=== PATIENT | male | born 1930 | race Caucasian/White ===

== ENCOUNTER 2019-03-09 13:27 | Inpatient (IN) | payer MEDICARE, OTHER ==
[2019-03-09] MEDS: Glimepiride 2 MG Tab PO SCH (17:17)
[2019-03-09] MEDS: Furosemide 40 MG Tab PO SCH (17:17)
[2019-03-09] MEDS: Insulin Lispro 100 Unit/ML 3 ML KwikPen SUBCUT SCH (17:17)
[2019-03-09] MEDS: Cholecalciferol (Vitamin D3) 25 MCG Tab PO SCH (19:59)
[2019-03-09] MEDS: Latanoprost 0.005% Ophth Soln 2.5 ML Bottle EYEBOTH SCH (20:06)
[2019-03-10] MEDS ORDERED: Warfarin 2 MG Tab PO ONE
[2019-03-10] MEDS: Warfarin 2 MG Tab PO SCH (00:15)
[2019-03-10] MEDS: Omeprazole 20 MG Cap.CR PO SCH (06:31)
[2019-03-10] MEDS: Amiodarone 200 MG Tab PO SCH (07:25)
[2019-03-10] MEDS: atorvaSTATin 40 MG Tab PO SCH (07:25)
[2019-03-10] MEDS: Lisinopril 20 MG Tab PO SCH (07:25)
[2019-03-10] MEDS: Tamsulosin 0.4 MG Cap.ER PO SCH (07:27)
[2019-03-10] MEDS: Finasteride 5 MG Tab PO SCH (07:27)
[2019-03-10] MEDS: Furosemide 40 MG Tab PO SCH ×2 (07:27→15:42)
[2019-03-10] MEDS: Cholecalciferol (Vitamin D3) 25 MCG Tab PO SCH ×2 (07:27→20:38)
[2019-03-10] MEDS: Multivitamin, Stress Formula with Zinc Tab PO SCH (07:27)
[2019-03-10] MEDS: Glimepiride 2 MG Tab PO SCH ×2 (07:28→18:02)
[2019-03-10] MEDS: Aspirin 81 MG Tab.EC PO SCH (07:28)
[2019-03-10] MEDS: Fish Oil/Omega-3 Fatty Acids 1 Gm Cap PO SCH (07:29)
[2019-03-10] MEDS: Glucosamine 500 MG Cap PO SCH (07:29)
[2019-03-10] MEDS: Insulin Lispro 100 Unit/ML 3 ML KwikPen SUBCUT SCH (07:30)
[2019-03-10] MEDS ORDERED: Metoprolol Succinate 50 MG Tab.ER PO SCH (08:00)
[2019-03-10] MEDS ORDERED: Menthol/Zinc Oxide Ointment 3.5 GM Tube TOP PRN (10:15)
[2019-03-10] MEDS: Acetaminophen 325 MG Tab PO PRN (15:42)
[2019-03-10] MEDS ORDERED: Non-Formulary Medication 1 Each (Warfarin 3 MG) PO SCH (20:00)
[2019-03-10] MEDS: Warfarin 2 MG, Warfarin 1 MG PO SCH ×2 (20:37)
[2019-03-10] MEDS: Latanoprost 0.005% Ophth Soln 2.5 ML Bottle EYEBOTH SCH (20:38)
[2019-03-11] MEDS: Omeprazole 20 MG Cap.CR PO SCH (06:15)
[2019-03-11] MEDS: TRULICITY SUBCUT SCH ×2 (07:33→12:00)
[2019-03-11] MEDS: Multivitamin, Stress Formula with Zinc Tab PO SCH (07:33)
[2019-03-11] MEDS: Furosemide 40 MG Tab PO SCH ×2 (07:34→16:07)
[2019-03-11] MEDS: Cholecalciferol (Vitamin D3) 25 MCG Tab PO SCH ×2 (07:34→19:33)
[2019-03-11] MEDS: atorvaSTATin 40 MG Tab PO SCH (07:34)
[2019-03-11] MEDS: Acetaminophen 325 MG Tab PO PRN ×2 (07:34→16:10)
[2019-03-11] MEDS: Finasteride 5 MG Tab PO SCH (07:34)
[2019-03-11] MEDS: Glucosamine 500 MG Cap PO SCH (07:34)
[2019-03-11] MEDS: Glimepiride 2 MG Tab PO SCH ×2 (07:35→17:45)
[2019-03-11] MEDS: Aspirin 81 MG Tab.EC PO SCH (07:35)
[2019-03-11] MEDS: Amiodarone 200 MG Tab PO SCH (07:35)
[2019-03-11] MEDS: Tamsulosin 0.4 MG Cap.ER PO SCH (07:35)
[2019-03-11] MEDS: Lisinopril 20 MG Tab PO SCH (07:36)
[2019-03-11] MEDS: Fish Oil/Omega-3 Fatty Acids 1 Gm Cap PO SCH (07:37)
[2019-03-11] MEDS: [UNRECOGNIZED DRUG - OTHER] PO SCH (07:38)
[2019-03-11] MEDS: BISOPROLOL 5 MG PO SCH (07:38)
[2019-03-11] MEDS: Warfarin 2 MG, Warfarin 1 MG PO SCH ×2 (19:33)
[2019-03-11] MEDS: Latanoprost 0.005% Ophth Soln 2.5 ML Bottle EYEBOTH SCH (21:50)
--- NOTE | 2019-03-11 23:55 | PCM.HP ---
H&P History of Present Illness - General Date of Service: 03/10/19 Admit Problem/Dx: Admission Diagnosis/Problem Admission Diagnosis/Problem CHF, Congestive heart failure weakness - secondary to recent acute exacerbation of diastolic CHF Source of Information: Patient, Old Records - History of Present Illness Initial Comments - Free Text/Narative: 88 year old male admitted to swing bed for continued therapy following recent hospitalization at [facility]. Pt was treated for acute exacerbation of diastolic CHF. He states he is feeing better than he had. Still has some SOB. Notes he wasn't wearing oxygen at home prior to hospitalization. Bilateral Knees Pain Score (Numeric/FACES): 5 - Related Data Allergies/Adverse Reactions: Allergies Allergy/AdvReac Type Severity Reaction Status Date / Time No Known Allergies Allergy Verified 03/09/19 13:41 Home Medications: Home Meds Amiodarone [Cordarone] 200 mg PO DAILY 03/09/19 [History] Aspirin [Halfprin] 81 mg PO DAILY 03/09/19 [History] Bisoprolol [Zebeta] 2.5 mg PO DAILY 03/09/19 [History] Cholecalciferol (Vitamin D3) [Vitamin D3] 1,000 units PO BID 03/09/19 [History] Dulaglutide [Trulicity] 1.5 mg SQ WEEKLY 03/09/19 [History] Febuxostat [Uloric] 80 mg PO DAILY 03/09/19 [History] Finasteride [Proscar] 5 mg PO DAILY 03/09/19 [History] Furosemide [Lasix] 40 mg PO BID 03/09/19 [History] Glimepiride [Amaryl] 1 mg PO BID 03/09/19 [History] Glucosamine Sulfate 500 mg PO DAILY 03/09/19 [History] Latanoprost/Pf [Latanoprost 0.005% Eye Drop] 1 drop EYEBOTH BEDTIME 03/09/19 [ History] Lisinopril 10 mg PO DAILY 03/09/19 [History] Multivitamin [Daily Marlin] 1 tab PO DAILY 03/09/19 [History] Hancock-3 Fatty Acids [Maxepa] 1,000 mg PO DAILY 03/09/19 [History] Omeprazole 20 mg PO ACBREAKFAST 03/09/19 [History] Tamsulosin [Flomax] 0.4 mg PO DAILY 03/09/19 [History] Warfarin [Coumadin] 2 mg PO MOWEFR@199903/09/19 [History] Warfarin [Coumadin] 3 mg PO SUTUTHSA@199903/09/19 [History] atorvaSTATin Calcium [Lipitor] 40 mg PO DAILY 03/09/19 [History] Past Medical History HEENT History: Reports: Cataract, Glaucoma, Hard of Hearing Cardiovascular History: Reports: Afib (paroxysmal), Arrhythmia (History of paryoxysmal v tach), Heart Failure (Diastolic), High Cholesterol, Hypertension, Pacemaker, Pulmonary Hypertension, Other (See Below) Other Cardiovascular History: SSS Respiratory History: Reports: Sleep Apnea, SOB Gastrointestinal History: Reports: Diverticulosis, GERD, Hemorrhoids Genitourinary History: Reports: BPH, Diabetic Nephropathy, Prostate Disorder, Renal Disease, Retention, Urinary Musculoskeletal History: Reports: Gout Endocrine/Metabolic History: Reports: Diabetes Mellitus, Type 3c, Hyperparathyroidism, Obesity/BMI 30+, Other (See Below) Hematologic History: Reports: Anemia, Other (See Below) Oncologic (Cancer) History: Reports: Squamous Cell Carcinoma Dermatologic History: Reports: Other (See Below) Other Dermatologic History: Actinic Keratosis - Past Surgical History HEENT Surgical History: Reports: Cataract Surgery Cardiovascular Surgical History: Reports: Pacer, Varicose GI Surgical History: Reports: Colonoscopy, Polypectomy Oncologic Surgical History: Reports: Other (See Below) Other Oncologic Surgeries/Procedures: MOHS of dorsal Left hand Social & Family History - Family History Family Medical History: Noncontributory - Tobacco Use Smoking Status *Q: Never Smoker Second Hand Smoke Exposure: No - Caffeine Use Caffeine Use: Reports: Coffee Caffeine Use Comment: 2-3 cups/day - Recreational Drug Use Recreational Drug Use: No H&P Review of Systems - Review of Systems: Review Of Systems: See Below General: Reports: Weakness. Denies: Fever, Chills HEENT: Reports: No Symptoms Pulmonary: Reports: Shortness of Breath Cardiovascular: Reports: Dyspnea on Exertion, Edema. Denies: Chest Pain Gastrointestinal: Reports: No Symptoms Genitourinary: Reports: Incontinence Musculoskeletal: Reports: Joint Pain Skin: Reports: No Symptoms Psychiatric: Reports: No Symptoms Neurological: Reports: Gait Disturbance Exam - Exam Exam: See Below - Vital Signs Vital Signs: Last Vital Signs Temp 36.4 C 03/11/19 06:00 Pulse 69 03/11/19 06:00 Resp 20 03/11/19 06:00 BP 143/69 H 03/11/19 07:36 Pulse Ox 93 L 03/11/19 07:09 Weight: 131.995 kg - Exam Quality Assessment: Supplemental Oxygen General: Alert, Oriented HEENT: Conjunctiva Clear, EOMI Neck: Supple Lungs: Clear to Auscultation Cardiovascular: Regular Rate GI/Abdominal Exam: Normal Bowel Sounds, Soft Extremities: Pedal Edema - Patient Data Lab Results Last 24 hrs: Laboratory Results - last 24 hr 03/11/19 03/11/19 03/11/19 Range/Units 06:20 10:43 17:15 POC Glucose 115 H 128 H 153 H (74-106) mg/dL 03/11/19 Range/Units 19:39 POC Glucose 175 H (74-106) mg/dL - Problem List (1) Weakness SNOMED Code(s): 20591900 ICD Code: R53.1 - WEAKNESS Status: Acute Current Visit: Yes (2) Diastolic CHF, chronic SNOMED Code(s): 647720817, 633336301 ICD Code: I50.32 - CHRONIC DIASTOLIC (CONGESTIVE) HEART FAILURE Status: Acute Current Visit: Yes (3) Diabetes mellitus type II, controlled SNOMED Code(s): 19029597, 899130009 ICD Code: E11.9 - TYPE 2 DIABETES MELLITUS WITHOUT COMPLICATIONS Status: Acute Current Visit: Yes (4) Paroxysmal atrial fibrillation SNOMED Code(s): 573173588 ICD Code: I48.0 - PAROXYSMAL ATRIAL FIBRILLATION Status: Acute Current Visit: Yes (5) Hypertension SNOMED Code(s): 93091882 ICD Code: I10 - ESSENTIAL (PRIMARY) HYPERTENSION Status: Acute Current Visit: Yes (6) Hyperuricemia SNOMED Code(s): 88757666 ICD Code: E79.0 - HYPERURICEMIA W/O SIGNS OF INFLAM ARTHRIT AND TOPHACEOUS DIS Status: Acute Current Visit: Yes (7) Diabetic peripheral neuropathy associated with type 2 diabetes mellitus SNOMED Code(s): 8600297374548 ICD Code: E11.42 - TYPE 2 DIABETES MELLITUS WITH DIABETIC POLYNEUROPATHY Status: Acute Current Visit: Yes Problem List Initiated/Reviewed/Updated: Yes Orders Last 24hrs: Active Orders 24 hr Category Date Time Status INR,PT,PROTHROMBIN TIME [COAG] WEEKLY Lab 03/17/19 05:11 Ordered INR,PT,PROTHROMBIN TIME [COAG] WEEKLY Lab 03/24/19 05:11 Ordered INR,PT,PROTHROMBIN TIME [COAG] WEEKLY Lab 03/31/19 05:11 Ordered Patient's Own Medication [Ptom] Med 03/11/19 08:00 Active 0 each PO DAILY Patient's Own Medication [Ptom] Med 03/11/19 08:00 Active 0 each SUBCUT Q7D Warfarin [Coumadin] Med 03/12/19 20:00 Active 2 mg PO MOWEFR@2000 Medication Orders Acetaminophen (Tylenol) 325 - 650 mg PO Q4H PRN PRN Reason: Pain Last Admin: 03/11/19 16:10 Dose: 650 mg Admin: 03/11/19 07:34 Dose: 650 mg Admin: 03/10/19 15:42 Dose: 650 mg Amiodarone HCl (Cordarone) 200 mg PO DAILY [facility] Last Admin: 03/11/19 07:35 Dose: 200 mg Admin: 03/10/19 07:25 Dose: 200 mg Aspirin (Halfprin) 81 mg PO DAILY [facility] Last Admin: 03/11/19 07:35 Dose: 81 mg Admin: 03/10/19 07:28 Dose: 81 mg Atorvastatin Calcium (Lipitor) 40 mg PO DAILY [facility] Last Admin: 03/11/19 07:34 Dose: 40 mg Admin: 03/10/19 07:25 Dose: 40 mg Calamine/Phenol (Calmoseptine) 0 gm TOP QID PRN PRN Reason: rash Last Admin: 03/11/19 16:08 Dose: 1 applic Cholecalciferol (Vitamin D3) 25 mcg PO BID [facility] Last Admin: 03/11/19 19:33 Dose: 25 mcg Admin: 03/11/19 07:34 Dose: 25 mcg Admin: 03/10/19 20:38 Dose: 25 mcg Admin: 03/10/19 07:27 Dose: 25 mcg Admin: 03/09/19 19:59 Dose: 25 mcg Finasteride (Proscar) 5 mg PO DAILY [facility] Last Admin: 03/11/19 07:34 Dose: 5 mg Admin: 03/10/19 07:27 Dose: 5 mg Fish Oil (Fish Oil) 1 gm PO DAILY [facility] Last Admin: 03/11/19 07:37 Dose: 1 gm Admin: 03/10/19 07:29 Dose: 1 gm Furosemide (Lasix) 40 mg PO BIDDIURETIC [facility] Last Admin: 03/11/19 16:07 Dose: 40 mg Admin: 03/11/19 07:34 Dose: 40 mg Admin: 03/10/19 15:42 Dose: 40 mg Admin: 03/10/19 07:27 Dose: 40 mg Admin: 03/09/19 17:17 Dose: 40 mg Glimepiride (Amaryl) 1 mg PO BIDMEALS [facility] Last Admin: 03/11/19 17:45 Dose: 1 mg Admin: 03/11/19 07:35 Dose: 1 mg Admin: 03/10/19 18:02 Dose: 1 mg Admin: 03/10/19 07:28 Dose: 1 mg Admin: 03/09/19 17:17 Dose: 1 mg Glucosamine Sulfate (Glucosamine Sulfate) 500 mg PO DAILY [facility] Last Admin: 03/11/19 07:34 Dose: 500 mg Admin: 03/10/19 07:29 Dose: 500 mg Latanoprost (Xalatan 0.005% Ophth Soln) 0 ml EYEBOTH BEDTIME [facility] Last Admin: 03/11/19 21:50 Dose: 1 drop Admin: 03/10/19 20:38 Dose: 1 drop Admin: 03/09/19 20:06 Dose: 1 drop Lisinopril (Prinivil) 10 mg PO DAILY [facility] Last Admin: 03/11/19 07:36 Dose: 10 mg Admin: 03/10/19 07:25 Dose: 10 mg Non-Formulary Medication (Febuxostat [Uloric]) 80 mg PO DAILY [facility] Omeprazole (Omeprazole) 20 mg PO ACBREAKFAST [facility] Last Admin: 03/11/19 06:15 Dose: 20 mg Admin: 03/10/19 06:31 Dose: 20 mg Bisoprolol 5 Mg Tab (*Pt Ownmed*) 0 each PO DAILY [facility] Last Admin: 03/11/19 07:38 Dose: 1 each Trulicity 1.5/0.5 Ml (Pen*Pt Own Med*) 0 each SUBCUT Q7D [facility] Last Admin: 03/11/19 12:00 Dose: 1 each Tamsulosin HCl (Flomax) 0.4 mg PO DAILY [facility] Last Admin: 03/11/19 07:35 Dose: 0.4 mg Admin: 03/10/19 07:27 Dose: 0.4 mg Vitamin B Complex/Vit C/Vit E/Zinc (Stress Formula With Zinc) 1 tab PO DAILY [facility] Last Admin: 03/11/19 07:33 Dose: 1 tab Admin: 03/10/19 07:27 Dose: 1 tab Warfarin Sodium (Coumadin) 2 mg PO MOWEFR@1999 [facility] Warfarin Sodium 2 mg/ Warfarin (Sodium 1 mg) 3 mg PO SuTuThSa@1999 [facility] Last Admin: 03/11/19 19:33 Dose: 3 mg Admin: 03/10/19 20:37 Dose: 3 mg Assessment/Plan Comment:: Pt will be admitted to swing bed and enrolled in both physical and occupational therapy. He desires to be a code level II Medications as prescribed Will monitor his blood sugar as he was on sliding scale during acute stay Plans to return home
[2019-03-12] MEDS: Omeprazole 20 MG Cap.CR PO SCH (06:22)
[2019-03-12] MEDS: Glimepiride 2 MG Tab PO SCH ×2 (08:03→18:38)
[2019-03-12] MEDS: Lisinopril 20 MG Tab PO SCH (08:04)
[2019-03-12] MEDS: Furosemide 40 MG Tab PO SCH ×2 (08:05→16:18)
[2019-03-12] MEDS: Multivitamin, Stress Formula with Zinc Tab PO SCH (08:05)
[2019-03-12] MEDS: Amiodarone 200 MG Tab PO SCH (08:05)
[2019-03-12] MEDS: Aspirin 81 MG Tab.EC PO SCH (08:05)
[2019-03-12] MEDS: Finasteride 5 MG Tab PO SCH (08:05)
[2019-03-12] MEDS: Tamsulosin 0.4 MG Cap.ER PO SCH (08:05)
[2019-03-12] MEDS: Glucosamine 500 MG Cap PO SCH (08:05)
[2019-03-12] MEDS: atorvaSTATin 40 MG Tab PO SCH (08:06)
[2019-03-12] MEDS: Cholecalciferol (Vitamin D3) 25 MCG Tab PO SCH ×2 (08:07→19:31)
[2019-03-12] MEDS: Fish Oil/Omega-3 Fatty Acids 1 Gm Cap PO SCH (08:07)
[2019-03-12] MEDS: BISOPROLOL 5 MG PO SCH (08:11)
[2019-03-12] MEDS: [UNRECOGNIZED DRUG - OTHER] PO SCH (08:11)
[2019-03-12] MEDS: Acetaminophen 325 MG Tab PO PRN ×2 (13:44→19:32)
[2019-03-12] MEDS: Warfarin 2 MG Tab PO SCH (19:31)
[2019-03-12] MEDS: Latanoprost 0.005% Ophth Soln 2.5 ML Bottle EYEBOTH SCH (19:31)
[2019-03-13] MEDS: Omeprazole 20 MG Cap.CR PO SCH (06:34)
[2019-03-13] MEDS: BISOPROLOL 5 MG PO SCH (07:44)
[2019-03-13] MEDS: [UNRECOGNIZED DRUG - OTHER] PO SCH (07:44)
[2019-03-13] MEDS: Fish Oil/Omega-3 Fatty Acids 1 Gm Cap PO SCH (07:45)
[2019-03-13] MEDS: Tamsulosin 0.4 MG Cap.ER PO SCH (07:45)
[2019-03-13] MEDS: atorvaSTATin 40 MG Tab PO SCH (07:45)
[2019-03-13] MEDS: Amiodarone 200 MG Tab PO SCH (07:45)
[2019-03-13] MEDS: Aspirin 81 MG Tab.EC PO SCH (07:45)
[2019-03-13] MEDS: Multivitamin, Stress Formula with Zinc Tab PO SCH (07:45)
[2019-03-13] MEDS: Furosemide 40 MG Tab PO SCH ×2 (07:45→17:17)
[2019-03-13] MEDS: Glucosamine 500 MG Cap PO SCH (07:45)
[2019-03-13] MEDS: Finasteride 5 MG Tab PO SCH (07:46)
[2019-03-13] MEDS: Glimepiride 2 MG Tab PO SCH ×2 (07:46→17:17)
[2019-03-13] MEDS: Lisinopril 20 MG Tab PO SCH (07:46)
[2019-03-13] MEDS: Cholecalciferol (Vitamin D3) 25 MCG Tab PO SCH ×2 (07:47→19:24)
[2019-03-13] MEDS: Acetaminophen 325 MG Tab PO PRN (08:59)
[2019-03-13] MEDS: FEBUXOSTAT 80 MG PO SCH ×2 (12:14→16:30)
[2019-03-13] MEDS: Warfarin 2 MG, Warfarin 1 MG PO SCH ×2 (19:23)
[2019-03-13] MEDS: Latanoprost 0.005% Ophth Soln 2.5 ML Bottle EYEBOTH SCH (19:25)
[2019-03-14] MEDS: Acetaminophen 325 MG Tab PO PRN ×3 (05:10→20:20)
[2019-03-14] MEDS: Omeprazole 20 MG Cap.CR PO SCH ×2 (05:11→06:03)
[2019-03-14] MEDS: FEBUXOSTAT 80 MG PO SCH ×2 (07:43→07:44)
[2019-03-14] MEDS: Finasteride 5 MG Tab PO SCH (08:09)
[2019-03-14] MEDS: atorvaSTATin 40 MG Tab PO SCH (08:09)
[2019-03-14] MEDS: Aspirin 81 MG Tab.EC PO SCH (08:09)
[2019-03-14] MEDS: Glucosamine 500 MG Cap PO SCH (08:09)
[2019-03-14] MEDS: Glimepiride 2 MG Tab PO SCH ×2 (08:10→17:59)
[2019-03-14] MEDS: Lisinopril 20 MG Tab PO SCH (08:10)
[2019-03-14] MEDS: Cholecalciferol (Vitamin D3) 25 MCG Tab PO SCH ×2 (08:10→19:33)
[2019-03-14] MEDS: Tamsulosin 0.4 MG Cap.ER PO SCH (08:10)
[2019-03-14] MEDS: Fish Oil/Omega-3 Fatty Acids 1 Gm Cap PO SCH (08:10)
[2019-03-14] MEDS: Amiodarone 200 MG Tab PO SCH (08:10)
[2019-03-14] MEDS: Multivitamin, Stress Formula with Zinc Tab PO SCH (08:10)
[2019-03-14] MEDS: Furosemide 40 MG Tab PO SCH (08:10)
[2019-03-14] MEDS: BISOPROLOL 5 MG PO SCH (08:11)
[2019-03-14] MEDS: [UNRECOGNIZED DRUG - OTHER] PO SCH (08:11)
[2019-03-14] MEDS ORDERED: Furosemide 40 MG Tab PO ONE (08:48)
[2019-03-14] MEDS ORDERED: Albuterol 0.083% 2.5 MG/3 ML Neb Soln NEB ONE (08:50)
--- NOTE | 2019-03-14 10:07 | CR ---
[id number] RAD/RAD Chest PA And Lateral EXAM: RAD Chest PA And Lateral INDICATION: SOB COMPARISON: None. DISCUSSION: Cardiomegaly and central vascular congestion. Small bilateral pleural effusions. Findings are most consistent degenerative exacerbation. Left chest wall cardiac conduction device in place. IMPRESSION: As above. Donell Gurrola MD 03/14/19 1004 Thank you for allowing us to participate in the care of your patient.
[2019-03-14 10:28] LABS: ANION GAP 12.4 mmol/L (10-20)
[2019-03-14] MEDS: Insulin Lispro 100 Unit/ML 3 ML KwikPen SUBCUT SCH ×2 (12:09→18:01)
[2019-03-14] MEDS ORDERED: Albuterol/Ipratropium 3.0-0.5 MG/3 ML Neb Soln NEB PRN (13:30)
[2019-03-14] MEDS: Warfarin 2 MG Tab PO SCH (19:33)
[2019-03-14] MEDS: Spironolactone 25 MG Tab PO SCH (19:33)
[2019-03-14] MEDS: Latanoprost 0.005% Ophth Soln 2.5 ML Bottle EYEBOTH SCH (19:34)
--- NOTE | 2019-03-15 03:50 | PN ---
Progress Note for NERY MILTON RADHA Date: 03/14/2019 Room #: VM.202 CHIEF COMPLAINT: Shortness of breath. HISTORY OF PRESENT ILLNESS: The patient was admitted on March 09 to a swing bed unit at [place] for continued physical and occupational therapy due to weakness secondary to CHF exacerbation. The nurses noticed the patient had increasing shortness of breath and increasing edema. The patient's admit weight was 290 pounds. Today's weight is 186 pounds. The patient does take a diuretic daily. Dr. Karen Warner was contacted earlier today with regard to the increased need of oxygen, shortness of breath, and edema. SUBJECTIVE: Constitutional: Negative. Respiratory: The patient states he feels somewhat shortness of breath and wheezy. Cardiovascular: Negative. Peripheral: Bilateral lower extremity edema. Skin: Negative. Neurological: Negative. PHYSICAL EXAMINATION: General: The patient is alert. The patient does not appear to be in any acute distress. The patient is cooperative. Respiratory: The patient has inspiratory and expiratory wheezing. The patient is currently wearing oxygen. The patient does not have any shortness of breath. Otherwise, lung sounds are clear with some scattered bibasilar crackles. Cardiovascular: Regular rate and rhythm. S1 and S2 present. Peripheral: +2 dependent lower pitting edema in bilateral lower extremities. Skin: Intact, warm, and dry. Neurological: The patient is alert. LABORATORY STUDIES: BMP: Sodium is 142, potassium 4.4, chloride 103, CO2 is 31, anion gap is 12.4, BUN is 62, creatinine 2.5, glucose 249, and calcium 9.7. BNP 819. D-dimer 0.44. Portable chest x-ray: Cardiomegaly and central vascular congestion. Small bilateral pleural effusions. Findings are most consistent with degenerative exacerbation. Left chest wall, cardiac conduction device is in place. ASSESSMENT: 1. Weakness. 2. Acute decompensated congestive heart failure. 3. Diabetes type 2, controlled. 4. Paroxysmal atrial fibrillation. 5. Hypertension. 6. Hyperuricemia. 7. 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 PLAN: The patient was given 40 mg of IV Lasix earlier today. Unknown at this time what his urine output was. We will start the patient on DuoNeb every 4 hours for shortness of breath and wheezing. We will continue the medications the same. We will ask Respiratory Therapy to do an overnight oximetry as well as evaluation for home oxygen needs. Recheck labs in the morning. Elevated BUN and creatinine. We will consider prerenal azotemia in the setting of congestive heart failure. The patient is a code 2. The patient does not wish to be transferred to a higher level of care should the need arise. The plan at this point is for the patient to be discharged home on Tuesday if the patient improves. NOTE: This patient was seen and examined by me as an [facility] Provider. TB: 03/14/2019 13:50:57 MODL: 03/15/2019 03:44:19 /[id number]
[2019-03-15] MEDS: Omeprazole 20 MG Cap.CR PO SCH (06:12)
[2019-03-15] MEDS: Multivitamin, Stress Formula with Zinc Tab PO SCH (07:25)
[2019-03-15] MEDS: Aspirin 81 MG Tab.EC PO SCH (07:25)
[2019-03-15] MEDS: atorvaSTATin 40 MG Tab PO SCH (07:25)
[2019-03-15] MEDS: Glucosamine 500 MG Cap PO SCH (07:26)
[2019-03-15] MEDS: Fish Oil/Omega-3 Fatty Acids 1 Gm Cap PO SCH (07:26)
[2019-03-15] MEDS: Cholecalciferol (Vitamin D3) 25 MCG Tab PO SCH ×2 (07:26→19:33)
[2019-03-15] MEDS: Glimepiride 2 MG Tab PO SCH ×2 (07:26→18:26)
[2019-03-15] MEDS: Furosemide 40 MG Tab PO SCH (07:26)
[2019-03-15] MEDS: Finasteride 5 MG Tab PO SCH (07:26)
[2019-03-15] MEDS: Lisinopril 20 MG Tab PO SCH (07:27)
[2019-03-15] MEDS: Tamsulosin 0.4 MG Cap.ER PO SCH (07:28)
[2019-03-15] MEDS: Spironolactone 25 MG Tab PO SCH (07:28)
[2019-03-15] MEDS: Amiodarone 200 MG Tab PO SCH (07:28)
[2019-03-15] MEDS: Insulin Lispro 100 Unit/ML 3 ML KwikPen SUBCUT SCH ×3 (07:28→18:30)
[2019-03-15] MEDS: BISOPROLOL 5 MG PO SCH (07:30)
[2019-03-15] MEDS: [UNRECOGNIZED DRUG - OTHER] PO SCH (07:30)
[2019-03-15] MEDS: Acetaminophen 325 MG Tab PO PRN ×2 (07:42→19:16)
[2019-03-15] MEDS: Latanoprost 0.005% Ophth Soln 2.5 ML Bottle EYEBOTH SCH (19:15)
[2019-03-15] MEDS: Warfarin 2 MG, Warfarin 1 MG PO SCH ×2 (19:16)
[2019-03-16] MEDS: Omeprazole 20 MG Cap.CR PO SCH (06:20)
[2019-03-16 07:02] LABS: ANION GAP 9.7 mmol/L (10-20)
[2019-03-16] MEDS: [UNRECOGNIZED DRUG - OTHER] PO SCH (07:32)
[2019-03-16] MEDS: BISOPROLOL 5 MG PO SCH (07:32)
[2019-03-16] MEDS: Multivitamin, Stress Formula with Zinc Tab PO SCH (07:33)
[2019-03-16] MEDS: Spironolactone 25 MG Tab PO SCH (07:33)
[2019-03-16] MEDS: atorvaSTATin 40 MG Tab PO SCH (07:34)
[2019-03-16] MEDS: Finasteride 5 MG Tab PO SCH (07:34)
[2019-03-16] MEDS: Glucosamine 500 MG Cap PO SCH (07:34)
[2019-03-16] MEDS: Tamsulosin 0.4 MG Cap.ER PO SCH (07:34)
[2019-03-16] MEDS: Aspirin 81 MG Tab.EC PO SCH (07:35)
[2019-03-16] MEDS: Furosemide 40 MG Tab PO SCH (07:35)
[2019-03-16] MEDS: Glimepiride 2 MG Tab PO SCH (07:35)
[2019-03-16] MEDS: Insulin Lispro 100 Unit/ML 3 ML KwikPen SUBCUT SCH (07:36)
[2019-03-16] MEDS: Amiodarone 200 MG Tab PO SCH (07:37)
[2019-03-16] MEDS: Lisinopril 20 MG Tab PO SCH (07:37)
[2019-03-16] MEDS: Cholecalciferol (Vitamin D3) 25 MCG Tab PO SCH (07:37)
[2019-03-16] MEDS: Fish Oil/Omega-3 Fatty Acids 1 Gm Cap PO SCH (07:37)
--- NOTE | 2019-03-16 21:13 | PCM.DCSUM1 ---
Discharge Summary - Hospital Course Free Text/Narrative:: 88 year old male admitted to swing bed following acute stay at [facility] for acute exacerbation of CHF. Pt in need of both physical as well as occupational therapy. Respiratory therapy consulted to assist with discharge planning Diagnosis: Stroke: No - Discharge Data Discharge Date: 03/16/19 Discharge Disposition: Home, W Home Health Agency 06 Condition: Good - Discharge Diagnosis/Problem(s) (1) Weakness SNOMED Code(s): 68874416 ICD Code: R53.1 - WEAKNESS Status: Acute (2) Diastolic CHF, chronic SNOMED Code(s): 533787001, 653429242 ICD Code: I50.32 - CHRONIC DIASTOLIC (CONGESTIVE) HEART FAILURE Status: Acute Priority: High (3) Diabetes mellitus type II, controlled SNOMED Code(s): 65832099, 462609204 ICD Code: E11.9 - TYPE 2 DIABETES MELLITUS WITHOUT COMPLICATIONS Status: Acute Qualifiers: Diabetes mellitus 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 Diabetes mellitus complication status: with neurologic complications Diabetes mellitus complication detail: with polyneuropathy Qualified Code(s): E11.42 - Type 2 diabetes mellitus with diabetic polyneuropathy; Z79.4 - keno terminal operator (current) use of insulin (4) Paroxysmal atrial fibrillation SNOMED Code(s): 980208075 ICD Code: I48.0 - PAROXYSMAL ATRIAL FIBRILLATION Status: Chronic (5) Hypertension SNOMED Code(s): 81209439 ICD Code: I10 - ESSENTIAL (PRIMARY) HYPERTENSION Status: Chronic Qualifiers: Hypertension type: essential hypertension Qualified Code(s): I10 - Essential (primary) hypertension (6) Hyperuricemia SNOMED Code(s): 34676736 ICD Code: E79.0 - HYPERURICEMIA W/O SIGNS OF INFLAM ARTHRIT AND TOPHACEOUS DIS Status: Chronic (7) Diabetic peripheral neuropathy associated with type 2 diabetes mellitus SNOMED Code(s): 0441023460692 ICD Code: E11.42 - TYPE 2 DIABETES MELLITUS WITH DIABETIC POLYNEUROPATHY Status: Chronic (8) CKD (chronic kidney disease) stage 4, GFR 15-29 ml/min SNOMED Code(s): 157153124 ICD Code: N18.4 - CHRONIC KIDNEY DISEASE, STAGE 4 (SEVERE) Status: Acute - Patient Summary/Data Consults: Consultations 03/09/19 13:34 OT Evaluation and Treatment [CONS] Routine PT Evaluation and Treatment [CONS] Routine 03/09/19 13:35 Consult to Case Management/Fountain Brush Assembler [CONS] Routine Hospital Course: 88 year old male admitted for continued therapy following acute stay for exacerbation of CHF. Pt enrolled in physical as well as occupational therapy. Pulse ox noted to drop with ambulation. pt continues to require supplemental oxygent to maintain sats above 90% Patient with history of diabetes. Had been on sliding scale with meals during acute stay. Home medications were re-initiated during acute stay. Patient reportedly taking uloric for his gout. However, he states he had only been taking this "as needed." This medication is not on formulary and thus was held. On Day 5 of swing bed pt had episode of acute SOB. Was noted to be wheezing and with increased edema. Additoinal diuretics were administered. Nebulizers administered with good results. Chest xray obtained - notable for mild effusions. Lab work obtained - notable for worsening renal function. Subsequently furosemide dose was decreased and patient was started on spironolactone. On Day 7 - pt had met short term goals and decision was made to discharge home with home health. - Patient Instructions Diet: Low Sodium Activity: As Tolerated Showering/Bathing: January Shower - Discharge Plan *PRESCRIPTION DRUG MONITORING PROGRAM REVIEWED*: Not Applicable Prescriptions/Med Rec: Spironolactone [Aldactone] 25 mg PO DAILY #30 tablet Home Medications: Home Meds Amiodarone [Cordarone] 200 mg PO DAILY 03/09/19 [History] Aspirin [Halfprin] 81 mg PO DAILY 03/09/19 [History] Bisoprolol [Zebeta] 2.5 mg PO DAILY 03/09/19 [History] Cholecalciferol (Vitamin D3) [Vitamin D3] 1,000 units PO BID 03/09/19 [History] Dulaglutide [Trulicity] 1.5 mg SQ WEEKLY 03/09/19 [History] Febuxostat [Uloric] 80 mg PO DAILY 03/09/19 [History] Finasteride [Proscar] 5 mg PO DAILY 03/09/19 [History] Glimepiride [Amaryl] 1 mg PO BID 03/09/19 [History] Glucosamine Sulfate 500 mg PO DAILY 03/09/19 [History] Latanoprost/Pf [Latanoprost 0.005% Eye Drop] 1 drop EYEBOTH BEDTIME 03/09/19 [ History] Lisinopril 10 mg PO DAILY 03/09/19 [History] Multivitamin [Daily Marlin] 1 tab PO DAILY 03/09/19 [History] [place]-3 Fatty Acids [Maxepa] 1,000 mg PO DAILY 03/09/19 [History] Omeprazole 20 mg PO ACBREAKFAST 03/09/19 [History] Tamsulosin [Flomax] 0.4 mg PO DAILY 03/09/19 [History] Warfarin [Coumadin] 2 mg PO MOWEFR@199903/09/19 [History] Warfarin [Coumadin] 3 mg PO SUTUTHSA@199903/09/19 [History] atorvaSTATin Calcium [Lipitor] 40 mg PO DAILY 03/09/19 [History] Furosemide [Lasix] 40 mg PO DAILY tablet 03/15/19 [Rx] Patient's Own Medication [Ptom] 0 each SUBCUT Q7D each 03/15/19 [Rx] Spironolactone [Aldactone] 25 mg PO DAILY #30 tablet 03/15/19 [Rx] Oxygen Therapy Mode: Nasal Cannula Oxygen Flow Rate (L/min): 1 Patient Handouts: Type 2 Diabetes Mellitus, Diagnosis, Adult, Heart Failure Action Plan, Form - Daily Weight Record - Discharge Summary/Plan Comment DC Time >30 min.: Yes Discharge Summary/Plan Comment: Patient will be discharged home with home health. Patient will be home bound due to deconditioning and need for supplemental oxygen. Home health nursing to assist with teaching related to CHF, CKD and diabetes. Home physical therapy to continue to work on strengtheing. Dr. Barry to oversee home health services. Patient will follow up with Dr. Barry in 1 week 40 minutes spent on discharge planning - General Info Date of Service: 03/16/19 - Review of Systems General: Reports: Weakness HEENT: Reports: No Symptoms Pulmonary: Reports: Shortness of Breath Cardiovascular: Reports: Dyspnea on Exertion. Denies: Chest Pain Gastrointestinal: Denies: Abdominal Pain Genitourinary: Reports: No Symptoms Skin: Reports: No Symptoms Neurological: Reports: Weakness Psychiatric: Reports: No Symptoms - Patient Data Vitals - Most Recent: Last Vital Signs Temp 36.1 C 03/16/19 06:00 Pulse 70 03/16/19 06:00 Resp 20 03/16/19 06:00 BP 110/53 L 03/16/19 07:37 Pulse Ox 94 L 03/16/19 08:00 Weight - Most Recent: 133.356 kg I&O - Last 24 hours: Intake & Output 03/16/19 03/16/19 03/16/19 06:59 14:59 22:59 Intake Total 180 280 Output Total 800 Balance -620 280 Lab Results - Last 24 hrs: Laboratory Results - last 24 hr 03/16/19 Range/Units 06:42 Sodium 144 (136-145) mmol/L Potassium 4.7 (3.5-5.1) mmol/L Chloride 106 (98-107) mmol/L Carbon Dioxide 33 H (21-32) mmol/L Anion Gap 9.7 L (10-20) mmol/L BUN 49 H (7-18) mg/dL Creatinine 1.7 H (0.70-1.30) mg/dL Est Cr Clr Drug Dosing 33.60 mL/min Estimated GFR (MDRD) 38 Glucose 101 (74-106) mg/dL Calcium 9.7 (8.5-10.1) mg/dL Magnesium 1.2 L (1.8-2.4) mg/dL Med Orders - Current: Current Medications Discontinued Medications Acetaminophen (Tylenol) 325 - 650 mg PO Q4H PRN PRN Reason: Pain Last Admin: 03/15/19 19:16 Dose: 650 mg Albuterol (Proventil Neb Soln) 2.5 mg NEB ONETIME ONE Stop: 03/14/19 08:51 Last Admin: 03/14/19 09:39 Dose: 2.5 mg Albuterol/Ipratropium (Duoneb 3.0-0.5 Mg/3 Ml) 3 ml NEB Q4HRRT PRN PRN Reason: Wheezing Amiodarone HCl (Cordarone) 200 mg PO DAILY ANA Last Admin: 03/16/19 07:37 Dose: 200 mg Aspirin (Halfprin) 81 mg PO DAILY ANA Last Admin: 03/16/19 07:35 Dose: 81 mg Atorvastatin Calcium (Lipitor) 40 mg PO DAILY ANA Last Admin: 03/16/19 07:34 Dose: 40 mg Calamine/Phenol (Calmoseptine) 0 gm TOP QID PRN PRN Reason: rash Last Admin: 03/11/19 16:08 Dose: 1 applic Cholecalciferol (Vitamin D3) 25 mcg PO BID [facility] Last Admin: 03/16/19 07:37 Dose: 25 mcg Finasteride (Proscar) 5 mg PO DAILY [facility] Last Admin: 03/16/19 07:34 Dose: 5 mg Fish Oil (Fish Oil) 1 gm PO DAILY [facility] Last Admin: 03/16/19 07:37 Dose: 1 gm Furosemide (Lasix) 40 mg PO BIDDIURETIC [facility] Last Admin: 03/14/19 08:10 Dose: 40 mg Furosemide (Lasix) 40 mg PO ONETIME ONE Stop: 03/14/19 08:49 Last Admin: 03/14/19 09:38 Dose: 40 mg Furosemide (Lasix) 40 mg PO DAILY [facility] Last Admin: 03/16/19 07:35 Dose: 40 mg Glimepiride (Amaryl) 1 mg PO BIDMEALS [facility] Last Admin: 03/16/19 07:35 Dose: 1 mg Glucosamine Sulfate (Glucosamine Sulfate) 500 mg PO DAILY [facility] Last Admin: 03/16/19 07:34 Dose: 500 mg Insulin Human Lispro (Humalog) 0 unit SUBCUT BIDMEALS [facility]; Protocol Last Admin: 03/10/19 07:30 Dose: Not Given Insulin Human Lispro (Humalog) 0 unit SUBCUT TIDMEALS [facility]; Protocol Last Admin: 03/16/19 07:36 Dose: Not Given Latanoprost (Xalatan 0.005% [facility] Soln) 0 ml EYEBOTH BEDTIME [facility] Last Admin: 03/15/19 19:15 Dose: 1 drop Lisinopril (Prinivil) 10 mg PO DAILY [facility] Last Admin: 03/16/19 07:37 Dose: 10 mg Metoprolol Succinate (Toprol Xl) 50 mg PO DAILY [facility] Last Admin: 03/10/19 07:28 Dose: 50 mg Own Supply: Febuxostat [Uloric] 80 Mg 0 mg PO DAILY [facility] Last Admin: 03/14/19 07:44 Dose: Not Given Non-Formulary Medication (Warfarin) 3 mg PO [email or web address] [facility] Omeprazole (Omeprazole) 20 mg PO ACBREAKFAST [facility] Last Admin: 03/16/19 06:20 Dose: 20 mg Bisoprolol 5 Mg Tab (*Pt Ownmed*) 0 each PO DAILY [facility] Last Admin: 03/16/19 07:32 Dose: 1 each Trulicity 1.5/0.5 Ml (Pen*Pt Own Med*) 0 each SUBCUT Q7D [facility] Last Admin: 03/11/19 12:00 Dose: 1 each Spironolactone (Aldactone) 25 mg PO DAILY [facility] Last Admin: 03/16/19 07:33 Dose: 25 mg Tamsulosin HCl (Flomax) 0.4 mg PO DAILY [facility] Last Admin: 03/16/19 07:34 Dose: 0.4 mg Vitamin B Complex/Vit C/Vit E/Zinc (Stress Formula With Zinc) 1 tab PO DAILY [facility] Last Admin: 03/16/19 07:33 Dose: 1 tab Warfarin Sodium (Coumadin) 2 mg PO [email or web address] [facility] Last Admin: 03/14/19 19:33 Dose: 2 mg Warfarin Sodium 2 mg/ Warfarin (Sodium 1 mg) 3 mg PO [email or web address] [facility] Last Admin: 03/15/19 19:16 Dose: 3 mg Warfarin Sodium (Coumadin) 2 mg PO ONETIME ONE Stop: 03/10/19 00:01 Last Admin: 03/10/19 00:15 Dose: 2 mg - Exam Quality Assessment: Reports: Supplemental Oxygen General: Reports: Alert, Oriented HEENT: Reports: Pupils Equal, Pupils Reactive, EOMI Neck: Reports: Supple Lungs: Reports: Crackles Cardiovascular: Reports: Regular Rate GI/Abdominal Exam: Normal Bowel Sounds (Male) Exam: Deferred Extremities: Pedal Edema Skin: Reports: Warm, Dry Psy/Mental Status: Reports: Alert, Normal Affect, Normal Mood
== END 2019-03-16 11:03 | disposition home health service (06) | DRG 947 ==
LOC: MERGE 13:33 → VM.MS 13:33
PROVIDERS: ADMIT Family Medicine; ATTEND Nurse Practitioner Family
DX: R53.1 Weakness (principal); I50.33 Acute on chronic diastolic (congestive) heart failure; I13.0 Hypertensive heart and chronic kidney disease with heart failure and stage 1 through stage 4 chronic kidney disease, or unspecified chronic kidney disease; N18.4 Chronic kidney disease, stage 4 (severe); H40.9 Unspecified glaucoma; H91.90 Unspecified hearing loss, unspecified ear; I48.0 Paroxysmal atrial fibrillation; E78.00 Pure hypercholesterolemia, unspecified; I27.20 Pulmonary hypertension, unspecified; I49.5 Sick sinus syndrome; G47.30 Sleep apnea, unspecified; K21.9 Gastro-esophageal reflux disease without esophagitis; N40.1 Benign prostatic hyperplasia with lower urinary tract symptoms; R33.8 Other retention of urine; E11.21 Type 2 diabetes mellitus with diabetic nephropathy; M10.9 Gout, unspecified; E21.3 Hyperparathyroidism, unspecified; E66.9 Obesity, unspecified; E11.42 Type 2 diabetes mellitus with diabetic polyneuropathy; Z79.899 Other long term (current) drug therapy; Z79.82 Long term (current) use of aspirin; Z95.0 Presence of cardiac pacemaker; Z79.01 Long term (current) use of anticoagulants; Z85.828 Personal history of other malignant neoplasm of skin; Z86.010 Personal history of colon polyps; E11.22 Type 2 diabetes mellitus with diabetic chronic kidney disease
CPT/HCPCS: 36415; 71046; 80048; 81001; 82962; 83735; 83880; 85379; 85610; 94640; 94760; 97110-GP; 97116-GP; 97162-GP; 97165-GO; 97535-GO; A9270-GY; J1815-GY; J7613-GY